=== PATIENT | female | born 1945 | race Hispanic/Latino ===

== ENCOUNTER → 2017-09-26 | Day surgery (SDC) | payer MEDICARE, BC ==
[2017-08-31 15:42] LABS: BASOPHILS # (AUTO) 0.1 (0.0-0.1); BASOPHILS % 1.2 % (0.0-1.0); EOSINOPHILS # (AUTO) 0.2 (0.0-0.4); EOSINOPHILS % 1.8 % (0.0-6.0); HEMATOCRIT 37.5 % (34.2-44.1); HEMOGLOBIN 12.6 g/dL (12.0-16.0); LYMPHOCYTES # (AUTO) 3.4 (1.0-3.2); LYMPHOCYTES % 33.7 % (18.0-39.1); MEAN CORPUSCULAR HEMOGLOBIN 28.6 pg (28-32); MEAN CORPUSCULAR HGB CONC 33.6 g/dL (31-35); MEAN CORPUSCULAR VOLUME 85.2 fL (81-99); MONOCYTES # (AUTO) 0.5 (0.2-0.8); MONOCYTES % 5.2 % (4.4-11.3); NEUTROPHILS # (AUTO) 5.7 (2.1-6.9); NEUTROPHILS % 57.7 % (38.7-80.0); PLATELET COUNT 289 x10e3/uL (140-360); RED CELL DISTRIBUTION WIDTH 13.2 % (11.7-14.4)
[2017-08-31 15:55] LABS: BLOOD UREA NITROGEN 20 mg/dL (7-26); BUN/CREATININE RATIO 22 (6-25); CALCIUM 9.4 mg/dL (8.4-10.2); CARBON DIOXIDE 25 mmol/L (22-29); CHLORIDE 103 mmol/L (98-107); EST GLOMERULAR FILTRATION RATE > 60 ML/MIN (60-); GLUCOSE 165 mg/dL (74-118); SODIUM 137 mmol/L (136-145)
--- NOTE | 2017-08-31 16:42 | Diagnostic Imaging Report ---
PROCEDURE: Frontal and lateral views of the chest. COMPARISON: None. INDICATIONS: PRE OP FINDINGS: Lines/tubes: None. Lungs: The lungs are well inflated and clear. There is no evidence of pneumonia or pulmonary edema. Pleura: There is no pleural effusion or pneumothorax. Heart and mediastinum: The heart and the mediastinum are normal. Bones: No acute bony abnormality. IMPRESSION: 1. No acute cardiopulmonary dis abnormalities ease. Bar Orozco M.D. Dictated by: Bar Orozco M.D. on 08/31/2017 at 16:50 Electronically approved by: Bar Orozco M.D. on 08/31/2017 at 16:50
[~2017-09-26] MED LIST: BAYER ASPIRIN PO; BUPIVACAINE 0.25% 30ML SDV INJ ONE; CALTRATE 600 + D3 PO; CEFAZOLIN SOD 2 GM/D5W 50ML 50 ML IV ONE; DEXAMETHASONE SOD PHOS INJ 4 MG/ML VIAL ONE; DILTIAZEM HCL120 MG PO; FENTANYL CITRATE/PF 100MCG/2 ML INJ ONE; FISH OIL 1,0001 EAC2 PO; GLIPIZIDE XL10 MG PO; GLUCOSAMINE MSM PO; GLYCOPYRROLATE INJ 1MG/ 5 ML SYR ONE; JANUVIA100 MG PO; LIDOCAINE 2% /EPINEPHRINE 20 ML SDV INJ ONE; LIDOCAINE HCL 2% LOCAL INJ 5 ML SDV VIAL INJ ONE; LOSARTAN-HCTZ1 EAC1 PO; METFORMIN HCL500 M1 PO; MIDAZOLAM HCL 2 MG/2 ML VIAL ONE; NEOSTIGMINE 5 MG/5ML SYR ONE; ONDANSETRON HCL INJ 2 MG/ML VIAL ONE; PHENYLEPHRINE HCL 1% 10 MG/ML VIAL ONE; PROPOFOL IV EMULSION 10 MG/ML 20 ML VIAL ONE; ROCURONIUM BROMIDE 10 MG/ML 5ML VIAL ONE; SEVOFLURANE INHAL SOLN 250 ML PEN BTL ONE
--- OUTSIDE RECORDS SUMMARY | 2017-09-26 08:16 | XMS REPORT ---
Author Author [facility] Address Unknown Phone Unavailable Care Team Providers Care Spanisher Name Role Phone LUIS DOS SANTOS Unavailable Unavailable Problems This patient has no known problems. Allergies, Adverse Reactions, Alerts This patient has no known allergies or adverse reactions. Medications This patient has no known medications. Results Test Description Test Time Test Comments Text Results Atomic Results Result Comments CHEST 2 VIEWS [place] [address] Patient Name: AV STRONG MR #: [id number] : 1945 Age/Sex: 72/F Req #: [id number] Adm Physician: Ordered by: LUIS DOS SANTOS MD Report #: [id number] Location: OR Room/Bed: Procedure: [id number] DX/CHEST 2 VIEWS Exam Date: 08/31/17 Exam Time: 1608 REPORT STATUS: Signed PROCEDURE: Frontal and lateral views of the chest. COMPARISON: None. INDICATIONS: PRE OP FINDINGS: Lines/tubes: None. Lungs: The lungs are well inflated and clear. There is no evidence of pneumonia or pulmonary edema. Pleura: There is no pleural effusion or pneumothorax. Heart and mediastinum: The heart and the mediastinum are normal. Bones: No acute bony abnormality. IMPRESSION: 1. No acute cardiopulmonary dis abnormalities ease. Jass Orozco M.D. Dictated by: Jass Orozco M.D. on 08/31/2017 at 16:50 Electronically approved by: Jass Orozco M.D. on 08/31/2017 at 16:50 Dictated By: JASS OROZCO MD 49 Transcribed By: IGGY on 08/31/171649 COPY TO: LUIS DOS SANTOS MD MRI SHOULDER LEFT WO [place] [address] Patient Name: AV STRONG MR #: [id number] : 1945 Age/Sex: 72/F Req #: [id number] [facility] Physician: Ordered by: LUIS DOS SANTOS MD Report #: [id number] Location: MRI Room/Bed: Procedure: [id number] MRI/MRI SHOULDER LEFT WO Exam Date: 07/06/17 Exam Time: 1515 REPORT STATUS: Signed TECHNIQUE: Magnetic resonance imaging of the LEFT SHOULDER was performed WITHOUT injected contrast. COMPARISON: None available. HISTORY: Pain FINDINGS: MUSCLES AND TENDONS: Rotator Cuff: Tendons: Partial thickness articular sided tear of the supraspinatus tendon with retraction measuring approximately 1.5 cm involving the deep fibers. Muscles: No focal muscle atrophy. Biceps Tendon: The long head of the biceps tendon is within the bicipital groove. Intra-articular tendinosis. GLENOHUMERAL JOINT: Glenoid Labrum: No displaced tear. Articular Cartilage: No focal defect. AC JOINT AND ACROMION: No hypertrophic degenerative changes of the acromioclavicular joint. The acromion is unremarkable. BONE: No acute fracture. SOFT TISSUES: Otherwise, the soft tissues appear unremarkable. IMPRESSION: Supraspinatus partial-thickness bursal surface tearing with retraction of the deep fibers. No atrophy Signed by: Dr. Tank Uribe M.D. on 07/06/2017 4 :02 PM Dictated By: TANK URIBE MD 01 Transcribed By: NELSON on 07/06/171601 COPY TO: LUIS DOS SANTOS MD
--- NOTE | 2017-09-28 00:28 | Operative Report ---
DATE OF PROCEDURE: September 26, 2017 PREOPERATIVE DIAGNOSES: 1. Left shoulder rotator cuff tear. 2. Left shoulder impingement. POSTOPERATIVE DIAGNOSES: 1. Left shoulder rotator cuff tear. 2. Left shoulder synovitis. 3. Left shoulder impingement. 4. Left shoulder biceps tendon tear. OPERATIONS/PROCEDURES PERFORMED: Patient underwent: 1. Left shoulder examination under anesthesia. 2. Left shoulder arthroscopy. 3. Left shoulder arthroscopic debridement of synovitis. 4. Left shoulder arthroscopic rotator cuff reconstruction. 5. Left shoulder arthroscopic subacromial decompression and acromioplasty. 6. Left shoulder arthroscopic debridement of the biceps tendon stump. WELL LOGGER: Coral Milner PA-C ANESTHESIA: General endotracheal intubation anesthesia. IV FLUIDS: Per the anesthesia record. BRIEF DESCRIPTION OF PATIENT'S OPERATIVE PROCEDURE: Ms. Kamara was taken to the operating room and placed in the supine position on the operating room table. Following induction of general anesthesia as well as endotracheal intubation, the patient's left upper extremity was examined under anesthesia. She was found to have mild stiffness in her shoulder when compared to the non-affected side. Her gross anatomy was normal. The patient's upper extremity was prepped and draped in standard surgical fashion. Standard posterolateral and anterior portals were created without difficulty. The scope was placed within the shoulder joint atraumatically, and examination of the glenohumeral articulation demonstrated no significant evidence of chondromalacia. The biceps tendon was found to be torn, and a prominent biceps tendon stump was found exiting the superior aspect of the glenoid. There was diffuse synovitis in the shoulder joint. There was a near complete rotator cuff tear. A shaver was placed in the shoulder joint and the synovitis was debrided. The biceps tendon stump was also debrided at this time. The remaining fibers of the rotator cuff tendon were elevated from their attachment to the greater tuberosity, and the insertion site for the rotator cuff was debrided thoroughly to a bleeding bony bed. The rotator cuff itself was debrided also at this time. The shoulder was deflated of its sterile normal saline. The scope was placed in the subacromial space and significant bursal inflammation was encountered in the subacromial space. A lateral portal was created through the outside-in technique. A shaver was placed in the shoulder joint and the bursa was resected. The rotator cuff tear was easily identified and the insertion site was further debrided to a bleeding bony bed. An accessory anterolateral portal was created. A suture anchor was inserted into the greater tuberosity of the humerus, and the suture arms from the anchor were then woven through the rotator cuff tissue. The rotator cuff tissue was advanced and tied firmly into the greater tuberosity. The coracoacromial ligament was then resected and an acromioplasty was performed. Range of motion of the shoulder joint demonstrated no impingement, and evaluation of the rotator cuff tissue found that it was firmly reattached to the greater tuberosity. The shoulder was then deflated of its sterile normal saline. The portal sites were closed and sterile dressings were applied. The patient was provided a shoulder immobilizer, awakened, and taken to postanesthesia care unit in stable condition. Coral Milner acted as a credentialing assistant for this case was necessary for both prepping and draping the patient as well as the passage of suture that allowed this case to be successful. Job#: [id number]
== END | disposition home or self-care (01) ==
LOC: OR 08:13
PROVIDERS: ATTEND Specialist
DX: M75.112 Incomplete rotator cuff tear or rupture of left shoulder, not specified as traumatic (principal); M65.812 Other synovitis and tenosynovitis, left shoulder; S46.212A Strain of muscle, fascia and tendon of other parts of biceps, left arm, initial encounter; E11.9 Type 2 diabetes mellitus without complications; I10 Essential (primary) hypertension; R00.1 Bradycardia, unspecified; X58.XXXA Exposure to other specified factors, initial encounter; Z01.810 Encounter for preprocedural cardiovascular examination; Z01.812 Encounter for preprocedural laboratory examination; Z01.818 Encounter for other preprocedural examination
CPT/HCPCS: 29826; 29827; 36415 ×2; 71046; 80048; 82948; 85025; 93005; J1100; J2001 ×2; J2250; J2370; J2405

== ENCOUNTER 2018-10-15 07:16 | Outpatient (RCR) | payer MEDICARE, BC ==
[~2018-10-15 07:16] MED LIST changes: -BUPIVACAINE 0.25% 30ML SDV INJ ONE; -CEFAZOLIN SOD 2 GM/D5W 50ML 50 ML IV ONE; -DEXAMETHASONE SOD PHOS INJ 4 MG/ML VIAL ONE; -FENTANYL CITRATE/PF 100MCG/2 ML INJ ONE; -GLYCOPYRROLATE INJ 1MG/ 5 ML SYR ONE; -LIDOCAINE 2% /EPINEPHRINE 20 ML SDV INJ ONE; -LIDOCAINE HCL 2% LOCAL INJ 5 ML SDV VIAL INJ ONE; +LIDOCAINE/PRILOCAINE 2.5-2.5% KIT ONE; -MIDAZOLAM HCL 2 MG/2 ML VIAL ONE; -NEOSTIGMINE 5 MG/5ML SYR ONE; -ONDANSETRON HCL INJ 2 MG/ML VIAL ONE; -PHENYLEPHRINE HCL 1% 10 MG/ML VIAL ONE; -PROPOFOL IV EMULSION 10 MG/ML 20 ML VIAL ONE; -ROCURONIUM BROMIDE 10 MG/ML 5ML VIAL ONE; -SEVOFLURANE INHAL SOLN 250 ML PEN BTL ONE
[2018-10-15] MEDS ORDERED: COLLAGENASE OINTMENT 30 GM TUBE ONE (14:24)
[2018-10-15] MEDS ORDERED: LIDOCAINE/PRILOCAINE 2.5-2.5% KIT ONE (14:24)
== END 2018-10-17 ==
LOC: WCC 07:16
PROVIDERS: ATTEND Podiatrist Foot & Ankle Surgery
DX: T81.89XA Other complications of procedures, not elsewhere classified, initial encounter (principal); I97.89 Other postprocedural complications and disorders of the circulatory system, not elsewhere classified; E11.622 Type 2 diabetes mellitus with other skin ulcer; E11.65 Type 2 diabetes mellitus with hyperglycemia; E11.8 Type 2 diabetes mellitus with unspecified complications; I87.2 Venous insufficiency (chronic) (peripheral)
CPT/HCPCS: 36415; 82948

== ENCOUNTER 2018-11-12 09:19 | Outpatient (RCR) | payer MEDICARE, BC ==
[2018-11-12] MEDS ORDERED: LIDOCAINE VISC 2% SOLN 15 ML UDC ONE (12:36)
== END 2018-11-17 ==
LOC: EDBD → WCC 09:19
PROVIDERS: ATTEND Podiatrist Foot & Ankle Surgery
DX: T81.89XA Other complications of procedures, not elsewhere classified, initial encounter (principal); I97.89 Other postprocedural complications and disorders of the circulatory system, not elsewhere classified; E11.65 Type 2 diabetes mellitus with hyperglycemia; E11.622 Type 2 diabetes mellitus with other skin ulcer; E11.8 Type 2 diabetes mellitus with unspecified complications; I87.2 Venous insufficiency (chronic) (peripheral)
CPT/HCPCS: 36415; 82948

== ENCOUNTER → 2019-04-28 | Outpatient (CLI) | payer MEDICARE, BC ==
[~2019-04-28] MED LIST changes: +ALENDRONATE SOD70 MG PO; +BIOTIN1 MG PO; +LEVOCETIRIZINE D5 MG PO; -LIDOCAINE/PRILOCAINE 2.5-2.5% KIT ONE; +METOPROLOL SUCC50 MG PO
--- NOTE | 2019-04-28 09:07 | Diagnostic Imaging Report ---
Left knee MRI without contrast. History: Knee pain. Medial meniscus tear. Decreased range of motion. Fall Comparison: 06/01/2016. Technique: Multiplanar multi-sequence MRI of the knee without contrast. Findings: Medial compartment: There is degeneration and fraying of the meniscus. There is a nondisplaced obliquely oriented undersurface tear at the posterior horn best seen on sagittal image 24. The medial compartmental articular cartilage surfaces are thin with regions of fraying and fissuring. There are small marginal osteophytes. Lateral compartment: There is mild degeneration of the lateral meniscus without tear. The lateral compartmental articular cartilage surfaces are slightly thin. The lateral collateral ligament complex is intact. Intercondylar notch: The ACL and PCL are intact. Patellofemoral compartment: There is articular cartilage fraying and deep fissuring in the patellofemoral compartment with mild underlying bone marrow edema. This is best seen on series 2 image 12. Extensor mechanism: Thickening/tendinosis of the distal quadriceps tendon and patellar tendon. Other findings: There is a joint effusion and synovitis. There is no acute fracture, subluxation or avascular necrosis. 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 Nondisplaced obliquely oriented undersurface tear at the posterior horn of the medial meniscus. No collateral ligament tear or cruciate ligament tear. Thickening/tendinosis of the distal quadriceps tendon Signed by: Dr. Nils Pinedo M.D. on 04/28/2019 9:04 AM
--- NOTE | 2019-04-28 09:12 | Diagnostic Imaging Report ---
Right knee MRI without contrast. History: Knee pain. Medial meniscus tear. Decreased range of motion. Fall Comparison: 06/01/2016. Technique: Multiplanar multi-sequence MRI of the knee without contrast. Findings: Medial compartment: There is degeneration and fraying of the meniscus. There is a nondisplaced obliquely oriented undersurface tear at the posterior horn best seen on sagittal image 15. The medial compartmental articular cartilage surfaces are thin with regions of fraying and fissuring. There are small marginal osteophytes. Lateral compartment: There is mild degeneration of the lateral meniscus without tear. The lateral compartmental articular cartilage surfaces are slightly thin. The lateral collateral ligament complex is intact. Intercondylar notch: The ACL and PCL are intact. Patellofemoral compartment: There is articular cartilage fraying and deep fissuring in the patellofemoral compartment with mild underlying bone marrow edema. This is best seen on series 2 image 13. Extensor mechanism: The patellar and quadriceps tendons are intact Other findings: There is a joint effusion and synovitis. There is no acute fracture, subluxation or avascular necrosis. 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 Nondisplaced obliquely oriented undersurface tear at the posterior horn of the medial meniscus. No collateral ligament tear or cruciate ligament tear. Signed by: Dr. Nils Pinedo M.D. on 04/28/2019 9:08 AM
== END ==
LOC: MRI 07:26
PROVIDERS: ATTEND Specialist
DX: S83.241A Other tear of medial meniscus, current injury, right knee, initial encounter (principal); S83.242A Other tear of medial meniscus, current injury, left knee, initial encounter

== ENCOUNTER → 2019-04-29 | Outpatient (CLI) | payer MEDICARE, BC ==
[~2019-04-29] MED LIST changes: +CLINDAMYCIN HC300 MG PO
[2019-04-29 12:50] LABS: BASOPHILS # (AUTO) 0.1 (0.0-0.1); BASOPHILS % 1.1 % (0.0-1.0); EOSINOPHILS # (AUTO) 0.2 (0.0-0.4); EOSINOPHILS % 2.7 % (0.0-6.0); HEMATOCRIT 38.5 % (34.2-44.1); HEMOGLOBIN 12.7 g/dL (12.0-16.0); LYMPHOCYTES # (AUTO) 3.4 (1.0-3.2); LYMPHOCYTES % 43.6 % (18.0-39.1); MEAN CORPUSCULAR HEMOGLOBIN 28.3 pg (28-32); MEAN CORPUSCULAR VOLUME 85.7 fL (81-99); MONOCYTES # (AUTO) 0.6 (0.2-0.8); MONOCYTES % 7.4 % (4.4-11.3); NEUTROPHILS # (AUTO) 3.5 (2.1-6.9); NEUTROPHILS % 44.9 % (38.7-80.0); PLATELET COUNT 279 x10e3/uL (140-360); RED BLOOD COUNT 4.49 x10e6/uL (3.6-5.1); RED CELL DISTRIBUTION WIDTH 13.6 % (11.7-14.4)
[2019-04-29 13:11] LABS: ANION GAP 12.7 mmol/L (8-16); BLOOD UREA NITROGEN 20 mg/dL (7-26); BUN/CREATININE RATIO 26 (6-25); CALCIUM 10.1 mg/dL (8.4-10.2); CARBON DIOXIDE 28 mmol/L (22-29); CHLORIDE 104 mmol/L (98-107); CREATININE, SERUM 0.76 mg/dL (0.57-1.11); EST GLOMERULAR FILTRATION RATE > 60 ML/MIN (60-); GLUCOSE 67 mg/dL (74-118); POTASSIUM 3.7 mmol/L (3.5-5.1); SODIUM 141 mmol/L (136-145)
--- NOTE | 2019-04-29 14:16 | Diagnostic Imaging Report ---
Chest, 2 views, 04/29/2019. History: Preop, left knee surgery. Comparison: None available. Findings: The cardiomediastinal silhouette and pulmonary vasculature are within normal limits. The lungs are clear without evidence of consolidation or pleural effusion. Mild degenerative changes are noted in the thoracic spine. There are no acute osseous or soft tissue abnormalities. Impression: No acute cardiopulmonary abnormality. Signed by: Kevin Sharma on 04/29/2019 2:13 PM
== END ==
LOC: RAD 05:00 → EDSTATUS 05-07 08:30
PROVIDERS: ATTEND Specialist
DX: Z01.818 Encounter for other preprocedural examination (principal); S83.242A Other tear of medial meniscus, current injury, left knee, initial encounter; Z53.8 Procedure and treatment not carried out for other reasons
CPT/HCPCS: 36415; 71046; 80048; 85025; 93005

== ENCOUNTER 2019-05-06 19:48 | Emergency (ER) | payer MEDICARE, BC ==
[~2019-05-06] VITALS: Ht 160 cm; Wt 72.1 kg
[~2019-05-06 19:48] MED LIST changes: -CLINDAMYCIN HC300 MG PO
[2019-05-06] MEDS ORDERED: HYDROCODONE/APAP 7.5MG-325MG 1 EA TAB ONE (20:45)
[2019-05-06] MEDS ORDERED: HYDROCODONE/APAP 7.5MG-325MG 1 EA TAB PO ONE (20:45)
--- NOTE | 2019-05-06 22:02 | Diagnostic Imaging Report ---
EXAMINATION: Head CT without contrast. HISTORY:Status post fall. COMPARISON:None. TECHNIQUE: Multidetector axial images were obtained from the foramen magnum to the vertex without contrast. The images were reconstructed using brain and bone algorithms. Thin section brain images were reformatted into coronal and sagittal planes. Dose modulation, iterative reconstruction, and/or weight based adjustment of the mA/kV was utilized to reduce the radiation dose to as low as reasonably achievable. Intravenous contrast: None IMAGE QUALITY: Acceptable. FINDINGS: Skull/scalp: Moderate right frontal temporal scalp soft tissue edema/hematoma. No soft tissue emphysema or radiopaque foreign body. No acute depressed or displaced calvarial fracture. Parenchyma: No abnormal density. No acute hemorrhage, mass or acute major vascular territorial infarct. Arteries: No density suggestive of thrombosis. Dural sinuses: No abnormal density suggestive of thrombosis. Ventricles: No hydrocephalus or displacement. Extra-axial spaces: No abnormal density. Brain volume: Normal for age. Craniocervical junction: No mass, Chiari malformation, or basilar invagination. Sella: No mass. Paranasal/mastoid sinuses: Imaged portions unremarkable. IMPRESSION: 1. Moderate right frontal temporal scalp soft tissue edema/hematoma. No acute fracture. 2. No acute posttraumatic intracranial abnormality. Signed by: Dr. Alisson Erickson M.D. on 05/06/2019 9:59 PM
--- NOTE | 2019-05-06 22:08 | Diagnostic Imaging Report ---
History: Status post fall. Comparison studies: None Technique: Axial images were obtained through the cervical region.. Coronal and sagittal images reconstructed from the axial data. Dose modulation, iterative reconstruction, and/or weight based adjustment of the mA/kV was utilized to reduce the radiation dose to as low as reasonably achievable. Intravenous contrast: None Findings: Fractures: No acute fracture. Well-corticated osseous fragment at the tip of C7 spinous process. Soft tissue injuries: None. Atlantoaxial articulation: Intact. Alignment: Loss of normal cervical lordosis is either positional or due to muscle spasm. No scoliosis. Cervicomedullary junction: No abnormalities. The foramen magnum is patent. Soft tissues: No abnormalities. Vertebrae: No fractures, infection or neoplasm. Degenerative changes: C4-C5: Mild degenerative disc disease. C5-C6: Mild degenerative disc disease. Posterior disc osteophyte complex results in mild canal stenosis. Mild right foraminal stenosis due to facet and uncovertebral arthrosis.. IMPRESSION: 1. No acute cervical spine fracture or dislocation. Loss of normal cervical lordosis is either positional or due to muscle spasm. 2. Ligament, spinal cord and or vascular abnormalities cannot be excluded on the basis of this examination. 3. Mild cervical spondylosis as detailed above. Signed by: Dr. Alisson Erickson M.D. on 05/06/2019 10:04 PM
--- NOTE | 2019-05-06 22:17 | Diagnostic Imaging Report ---
Examination: Single AP view of the chest. COMPARISON: None. INDICATION: Status post fall IMPRESSION: 1. Lines and Tubes: None 2. Lungs are grossly clear. No consolidation or effusion. 3. Cardiomediastinal silhouette is normal. Pulmonary vasculature is normal. 4. No acute bony abnormalities. Signed by: Dr. Bar Orozco M.D. on 05/06/2019 10:14 PM
--- NOTE | 2019-05-06 22:31 | Diagnostic Imaging Report ---
Exam: Right wrist Series. History: Status post fall today, right wrist pain Comparison: None. Findings: 3 views of the right wrist. There is decreased bone mineralization, which limits evaluation of the bony structures.. 6-7 mm ill-defined bony fragment projecting dorsal to the lunate bone on the lateral view, which has overlying soft tissue swelling. No abnormal soft tissue calcification or mass. Soft tissue swelling around the distal aspect wrist Impression: 1. Decreased bone mineralization limits evaluation of bony structures. 2. 6-7 mm ill-defined bony fragment projecting dorsal to the lunate bone on the lateral view only with overlying soft tissue swelling indeterminate, and may represent an avulsion fracture from the scaphoid bone or lunate. Signed by: Dr. Bar Orozco M.D. on 05/06/2019 10:28 PM
--- NOTE | 2019-05-06 22:36 | Diagnostic Imaging Report ---
EXAMINATION: Pelvis AP film CLINICAL HISTORY:Status post fall COMPARISON: None. DISCUSSION: Mild osteopenia. No acute, displaced fractures or dislocations. Mild bilateral hip degenerative changes. Sacroiliac joints are grossly unremarkable. Mild vascular calcifications. Degenerative changes are also noted in the lower lumbosacral spine. No lytic or blastic lesions. No gross soft tissue abnormalities. Nonobstructive bowel gas pattern. IMPRESSION: 1. No acute abnormalities. Signed by: Dr. Bar Orozco M.D. on 05/06/2019 10:32 PM
[2019-05-06] MEDS ORDERED: METOPROLOL SUCCINATE 50 MG TAB XL PO ONE (23:00)
[2019-05-06] MEDS ORDERED: METOPROLOL SUCCINATE 50 MG TAB XL ONE (23:13)
[2019-05-07 00:05] VITALS: BP 162/70
== END 2019-05-07 00:25 | disposition home or self-care (01) ==
LOC: ER 19:48
DX: S00.83XA Contusion of other part of head, initial encounter (principal); S62.101A Fracture of unspecified carpal bone, right wrist, initial encounter for closed fracture; W01.0XXA Fall on same level from slipping, tripping and stumbling without subsequent striking against object, initial encounter; Y92.008 Other place in unspecified non-institutional (private) residence as the place of occurrence of the external cause; I10 Essential (primary) hypertension; E11.9 Type 2 diabetes mellitus without complications
CPT/HCPCS: 70450; 71045; 72125; 72170; 99284

== ENCOUNTER → 2019-05-19 | Outpatient (CLI) | payer MEDICARE, BC ==
--- NOTE | 2019-05-19 12:58 | Diagnostic Imaging Report ---
TECHNIQUE: Computed tomography imaging of the LEFT WRIST was performed WITHOUT injected contrast.Dose modulation, iterative reconstruction, and/or weight based adjustment of the mA/kV was utilized to reduce the radiation dose to as low as reasonably achievable. HISTORY: Pain COMPARISON: None available. FINDINGS: Mildly comminuted dorsal triquetral avulsion fracture with 2 dominant components measuring approximately 6 mm on axial images. No additional fracture visualized. Carpal arcs aligned. Mild distal radioulnar joint and first carpometacarpal joint degenerative arthrosis. IMPRESSION: Dorsal triquetral avulsion fracture Signed by: Dr. Fredy Borja M.D. on 05/19/2019 12:55 PM
== END ==
LOC: CT 11:29
PROVIDERS: ATTEND Specialist
DX: S62.141A Displaced fracture of body of hamate [unciform] bone, right wrist, initial encounter for closed fracture (principal)

== ENCOUNTER 2019-07-15 08:00 | Outpatient (RCR) | payer MEDICARE, BC ==
[~2019-07-15 08:00] MED LIST changes: +CLINDAMYCIN HC300 MG PO
== END 2019-07-19 ==
LOC: OT 08:00
PROVIDERS: ATTEND Specialist
DX: S52.501D Unspecified fracture of the lower end of right radius, subsequent encounter for closed fracture with routine healing (principal); M25.531 Pain in right wrist; M25.631 Stiffness of right wrist, not elsewhere classified; R53.1 Weakness

== ENCOUNTER → 2019-10-15 | Outpatient (CLI) | payer MEDICARE, BC ==
[~2019-10-15] MED LIST changes: +IOPAMIDOL 370 MG/ML 200 ML INFUS..BTL INJ ONE; +SODIUM CHLORIDE 0.9% 50ML 50 ML ONE
[2019-10-15 08:12] LABS: BLOOD UREA NITROGEN 24 mg/dL (7-26); BUN/CREATININE RATIO 29 (6-25); CREATININE, SERUM 0.84 mg/dL (0.57-1.11); EST GLOMERULAR FILTRATION RATE > 60 ML/MIN (60-)
--- NOTE | 2019-10-15 09:06 | Diagnostic Imaging Report ---
CTA OF THE ABDOMEN, PELVIS AND BILATERAL LOWER EXTREMITIES WITH CONTRAST. INDICATION: Peripheral vascular disease COMPARISON: None. TECHNIQUE: Axial images were obtained of the abdomen and pelvis with runoff to the lower extremities after the administration of IV contrast according to the CTA abdomen/pelvis with runoff protocol. Coronal and sagittal multiplanar, MIP, and 3-D volume-rendering reformations were obtained. RADIATION DOSE: Total DLP: 838.94 mGy*cm Dose modulation, iterative reconstruction, and/or weight based adjustment of the mA/kV was utilized to reduce the radiation dose to as low as reasonably achievable. DISCUSSION: Vascular: The abdominal aorta is normal course and caliber with mild atherosclerotic calcifications. Maximal AP diameter is of the abdominal aorta are 2.2 cm at the diaphragmatic hiatus, 2.1 cm at the mesenteric segment, 1.8 cm at the renal segment, 1.6 cm within the infrarenal segment, and 1.4 cm at the aortic bifurcation. The celiac artery, SMA, bilateral renal arteries, and VIPIN are patent without evidence for significant focal stenosis. Right lower extremity: The right common iliac, external iliac, and internal iliac arteries are patent and unremarkable. The right common femoral artery, superficial femoral artery, profunda, and popliteal arteries are patent without significant focal stenosis or other abnormality. The right anterior tibial, posterior tibial, and peroneal arteries are patent to the level of the ankle. Left lower extremity: The left common iliac, external iliac, and internal iliac arteries are patent and unremarkable. The left common femoral artery, superficial femoral artery, profunda, and popliteal arteries are patent without significant focal stenosis or other abnormality. The left anterior tibial, posterior tibial, and peroneal arteries are patent to the level of the ankle. Nonvascular: The visualized lungs are clear. The imaged portion of the heart demonstrates no significant abnormalities. The liver is normal in size without evidence for focal abnormality. The gallbladder is unremarkable. There is no biliary ductal dilatation. The stomach, spleen, pancreas, and bilateral adrenal glands are unremarkable. The kidneys are normal in size and location and enhance symmetrically. There is no evidence for hydronephrosis. The ureters are normal course and caliber. The urinary bladder demonstrates no significant abnormalities. The uterus is not visualized and likely surgically absent. No abnormal adnexal masses are identified. Please note evaluation the bowel is limited without the use of enteric contrast material. The visualized loops of small and large bowel demonstrate no evidence of obstruction or inflammation. There is no ascites or intraperitoneal free air. No abnormally enlarged lymph nodes are identified within the abdomen or pelvis. The osseous structures to the straight no evidence for acute fracture or destructive process. The the surrounding soft tissues are unremarkable. IMPRESSION: Unremarkable CTA of the abdomen/pelvis with bilateral lower extremity runoff. Three vessel runoff noted bilaterally. Mild abdominal aortic atherosclerosis without evidence for aneurysm or significant focal stenosis. Signed by: Dr. Lazaro Vazquez MD on 10/15/2019 9:04 AM
== END ==
LOC: CT 07:29
PROVIDERS: ATTEND Family Medicine
DX: I73.9 Peripheral vascular disease, unspecified (principal)
CPT/HCPCS: 36415; 75635; 82565; 84520; Q9967

== ENCOUNTER 2021-06-17 07:00 | Outpatient (RCR) | payer MEDICARE, BC ==
[~2021-06-17 07:00] MED LIST changes: -IOPAMIDOL 370 MG/ML 200 ML INFUS..BTL INJ ONE; -SODIUM CHLORIDE 0.9% 50ML 50 ML ONE
== END 2021-06-19 ==
LOC: PT 07:00
PROVIDERS: ATTEND Specialist
DX: M17.12 Unilateral primary osteoarthritis, left knee (principal); M62.81 Muscle weakness (generalized); M25.562 Pain in left knee; R26.2 Difficulty in walking, not elsewhere classified

== ENCOUNTER 2021-07-18 07:57 | Outpatient (RCR) | payer MEDICARE, BC | END 2021-07-19 | LOC: PT 07:57 | PROVIDERS: ATTEND Specialist | DX: M17.11 Unilateral primary osteoarthritis, right knee (principal); M25.561 Pain in right knee; M25.562 Pain in left knee; R26.2 Difficulty in walking, not elsewhere classified ==

== ENCOUNTER 2021-07-26 14:00 | Outpatient (RCR) | payer MEDICARE, BC | END 2021-08-19 | LOC: PT 14:00 | PROVIDERS: ATTEND Specialist | DX: M17.12 Unilateral primary osteoarthritis, left knee (principal) | CPT/HCPCS: 97139 ==

== ENCOUNTER → 2024-10-13 | Day surgery (SDC) | payer MEDICARE, BC ==
[2024-10-06 09:25] LABS: BASOPHILS # (AUTO) 0.1 (0.0-0.1); EOSINOPHILS # (AUTO) 0.1 (0.0-0.4); EOSINOPHILS % 1.2 % (0.0-6.0); HEMATOCRIT 40.5 % (34.2-44.1); HEMOGLOBIN 13.3 g/dL (12.0-16.0); LYMPHOCYTES % 29.7 % (18.0-39.1); MEAN CORPUSCULAR HEMOGLOBIN 28.5 pg (28-32); MEAN CORPUSCULAR HGB CONC 32.8 g/dL (31-35); MEAN CORPUSCULAR VOLUME 86.7 fL (81-99); MONOCYTES # (AUTO) 0.4 (0.2-0.8); MONOCYTES % 5.9 % (4.4-11.3); NEUTROPHILS # (AUTO) 4.2 (2.1-6.9); NEUTROPHILS % 61.8 % (38.7-80.0); PLATELET COUNT 275 x10e3/uL (140-360); RED BLOOD COUNT 4.67 x10e6/uL (3.6-5.1); RED CELL DISTRIBUTION WIDTH 13.5 % (11.7-14.4); WHITE BLOOD COUNT 6.74 x10e3/uL (4.8-10.8)
[2024-10-06 10:00] LABS: ANION GAP 12.9 mmol/L (8-16); CREATININE, SERUM 0.89 mg/dL (0.57-1.11); POTASSIUM 3.9 mmol/L (3.5-5.1)
[~2024-10-13] MED LIST changes: +ACETAMINOPHEN 1000 MG/100 ML 100 ML IV ONE; +ACETAMINOPHEN 1000 MG/100 ML IV PRN; +AMLODIPINE BESYL5 MG PO; +ASPIRIN 325 MG TAB PO SCH; +ASPIRIN81 MG PO; +CELECOXIB 100 MG CAP PO SCH; +DEXAMETHASONE SOD PHOS 10 MG/1 ML VIAL ONE; +DIPHENHYDRAMINE HCL INJ 50 MG/ML VIAL IV PRN; +DOCUSATE SODIUM 100 MG CAP PO PRN; +EPHEDRINE SULFATE INJ 50 MG/ML VIAL ONE; +FAMOTIDINE 20 MG/2 ML VIAL IV ONE; +FENTANYL CITRATE/PF 100MCG/2 ML INJ ONE; +GABAPENTIN300 MG PO; +HYDROCODONE/APAP 5MG-325MG TAB PO PRN; +HYDROCODONE/APAP 7.5MG-325MG 1 EA TAB PO PRN; +LIDOCAINE HCL 2% LOCAL INJ 5 ML SDV VIAL INJ ONE; +MIDAZOLAM HCL 2 MG/2 ML VIAL ONE; +OLMESARTAN-HCT1 EAC2 PO; +ONDANSETRON HCL INJ 2MG/ML 2ML 2 MG/ML VIAL IV PRN; +ONDANSETRON HCL INJ 2MG/ML 2ML 2 MG/ML VIAL ONE; +PROPOFOL IV EMULSION 10 MG/ML 20 ML VIAL ONE; +ROPIVACAINE/EPI/CLONIDINE/KET 50 ML SYRINGE INJ ONE; +SEVOFLURANE INHAL SOLN 250 ML PEN BTL ONE; +SODIUM CHLORIDE 0.9% 1000ML 1,000 ML IV SCH; +TRAZODONE HCL50 MG PO
[2024-10-13] MEDS: DEXAMETHASONE SOD PHOS 10 MG/1 ML VIAL ONE (05:56)
[2024-10-13] MEDS: CEFAZOLIN SODIUM 2 GM ONE (05:56)
[2024-10-13] MEDS: LACTATED RINGER'S 1,000 ML ONE (05:57)
[2024-10-13] MEDS: CELECOXIB 200 MG CAP ONE (05:57)
[2024-10-13] MEDS: GABAPENTIN 300 MG CAP ONE (05:57)
[2024-10-13 11:50] VITALS: BP 114/45; PULSE 70; RESP 18; O2SAT 99
== END | disposition home health service (06) ==
LOC: OR 05:10
PROVIDERS: ATTEND Specialist
DX: M17.12 Unilateral primary osteoarthritis, left knee (principal); M25.762 Osteophyte, left knee; E11.9 Type 2 diabetes mellitus without complications; I10 Essential (primary) hypertension; Z88.8 Allergy status to other drugs, medicaments and biological substances; Z01.812 Encounter for preprocedural laboratory examination; Z01.818 Encounter for other preprocedural examination; Z79.84 Long term (current) use of oral hypoglycemic drugs; Z79.82 Long term (current) use of aspirin; Z79.899 Other long term (current) drug therapy; Z87.81 Personal history of (healed) traumatic fracture
CPT/HCPCS: 27447; 36415; 71046; 73560; 80048; 85025; 86850; 86900; 93005; 97116 ×2; 97161; 97530 ×2; C1713 ×2; C1776 ×4; J0131; J1100; J2003; J2250; J2405; J2704; J3010; J7121